=== PATIENT | male | born 1945 | race Caucasian/White ===

== ENCOUNTER 2023-05-14 21:06 | Inpatient (IN) | payer MEDICARE, OTHER ==
[2023-05-14] MEDS ORDERED: methylPREDNISolone NA SUCC 125 MG/2 ML VIAL IVPB ONE (21:39)
[2023-05-14] MEDS ORDERED: ALBUTEROL SO4 2.5/IPRATROPIUM 0.5 INH SOL 3 ML VIAL.NEB. NEB STA (21:42)
[2023-05-14] MEDS ORDERED: methylPREDNISolone NA SUCC 125 MG/2 ML VIAL ONE (21:47)
[2023-05-14] MEDS ORDERED: ALBUTEROL SO4 2.5/IPRATROPIUM 0.5 INH SOL 3 ML VIAL.NEB. NEB ONE ×3 (21:47→23:21)
[2023-05-14 22:19] LABS: BASO % 0.7 % (0-2.0); EOS % 6.9 % (0-4.5); HEMATOCRIT 47.4 % (35.4-49); HEMOGLOBIN 16.2 GM/dL (11.7-16.9); LYMPH % 16.6 % (8-40); MCH 30.3 pg (25.7-33.7); MCHC 34.2 g/dl (32.0-35.9); MEAN CELL VOLUME 88.8 fl (80-96); MEAN PLT VOLUME 7.8 fl (7.5-11.1); MONO % 5.3 % (3.8-10.2); NEUT % 70.5 % (42.8-82.8); PLATELET COUNT 326 10^3/uL (134-434); RBC 5.34 M/mm3 (4.00-5.60); WHITE BLOOD COUNT 9.9 K/mm3 (4.0-10.0)
[2023-05-14 22:38] LABS: POTASSIUM 4.6 mmol/L (3.5-5.1)
[2023-05-14 22:40] LABS: CALCIUM 9.5 mg/dL (8.5-10.1)
[2023-05-14 22:41] LABS: ALBUMIN 3.9 g/dl (3.4-5.0); BLOOD UREA NITROGEN 20.6 mg/dL (7-18)
[2023-05-14 22:44] LABS: CREATININE 1.5 mg/dL (0.55-1.3)
[2023-05-14 22:46] LABS: BILIRUBIN,TOTAL 0.8 mg/dL (0.2-1); TOT PROT 7.4 g/dl (6.4-8.2)
[2023-05-14 22:49] LABS: N-TERMINAL BNP 14.6 pg/ml (5-450)
[2023-05-15] MEDS ORDERED: AZITHROMYCIN IVPB 500 MG/250 ML BAG IVPB ONE ×2 (02:53→03:27)
[2023-05-15 05:36] LABS: PH,URINE 6.5 (5.0-8.0); URINE APPEARANCE CLEAR; URINE BILIRUBIN NEGATIVE (NEGATIVE); URINE COLOR YELLOW; URINE GLUCOSE (UA) 1+ (NEGATIVE); URINE KETONE TRACE (NEGATIVE); URINE LEUK ESTERASE NEGATIVE (NEGATIVE); URINE NITRITE NEGATIVE (NEGATIVE); URINE PROTEIN NEGATIVE (NEGATIVE); URINE UROBILINOGEN 0.2 mg/dL (0.2-1.0)
[2023-05-15 06:24] LABS: HEMATOCRIT 45.9 % (35.4-49); HEMOGLOBIN 15.5 GM/dL (11.7-16.9); MCH 30.5 pg (25.7-33.7); MCHC 33.8 g/dl (32.0-35.9); MEAN CELL VOLUME 90.2 fl (80-96); MEAN PLT VOLUME 8.2 fl (7.5-11.1); PLATELET COUNT 308 10^3/uL (134-434); RBC 5.09 M/mm3 (4.00-5.60); RDW 14.1 % (11.9-15.9); WHITE BLOOD COUNT 4.5 K/mm3 (4.0-10.0)
[2023-05-15 06:37] LABS: POTASSIUM 4.5 mmol/L (3.5-5.1)
[2023-05-15 06:39] LABS: CALCIUM 9.4 mg/dL (8.5-10.1)
[2023-05-15 06:40] LABS: ALBUMIN 3.8 g/dl (3.4-5.0)
[2023-05-15 06:43] LABS: CREATININE 1.2 mg/dL (0.55-1.3)
[2023-05-15 06:45] LABS: BILIRUBIN,TOTAL 0.6 mg/dL (0.2-1); TOT PROT 7.2 g/dl (6.4-8.2)
[2023-05-15] MEDS: ALBUTEROL SO4 2.5/IPRATROPIUM 0.5 INH SOL 3 ML VIAL.NEB. NEB SCH ×5 (07:45→21:27)
[2023-05-15] MEDS: HEPARIN NA (PORCINE) 5,000 UNITS/ML 1ML VIAL SQ SCH ×3 (09:04→21:24)
[2023-05-15] MEDS: PANTOPRAZOLE 20 MG TABLET PO SCH (09:54)
[2023-05-15] MEDS: methylPREDNISolone NA SUCC 40 MG/1 ML VIAL IVPUSH SCH ×2 (09:54→18:29)
[2023-05-15] MEDS ORDERED: LACTATED RINGERS SOLUTION 1,000 ML/1,000 ML INFUS.BAG IV SCH (10:30)
[2023-05-15 10:31] VITALS: BMI 26.9
[2023-05-15] MEDS: BUDESONIDE/FORMETEROL FUMARATE 80/4.5 mcg INHALER IH SCH ×2 (13:31→21:35)
[2023-05-15 19:27] VITALS: RESP 18
[2023-05-15] MEDS ORDERED: MELATONIN 5 MG TABLETS PO PRN (22:45)
[2023-05-16] MEDS: methylPREDNISolone NA SUCC 40 MG/1 ML VIAL IVPUSH SCH ×2 (01:06→09:34)
[2023-05-16] MEDS: HEPARIN NA (PORCINE) 5,000 UNITS/ML 1ML VIAL SQ SCH (05:35)
[2023-05-16 07:06] VITALS: BP 135/65; PULSE 80; TEMP 97.9
[2023-05-16] MEDS: ALBUTEROL SO4 2.5/IPRATROPIUM 0.5 INH SOL 3 ML VIAL.NEB. NEB SCH ×2 (07:58→11:36)
[2023-05-16] MEDS: PANTOPRAZOLE 20 MG TABLET PO SCH (09:34)
[2023-05-16] MEDS: BUDESONIDE/FORMETEROL FUMARATE 80/4.5 mcg INHALER IH SCH (09:35)
[2023-05-16] MEDS ORDERED: AZITHROMYCIN IVPB 250 MG in DEXTROSE 5%-WATER - 250 ML IVPB SCH (10:00)
[2023-05-16] MEDS ORDERED: MONTELUKAST NA 10 MG TABLET PO SCH (22:00)
== END 2023-05-16 13:26 | disposition home or self-care (01) | DRG 202 ==
LOC: JER 21:06 → JERBED 05-15 00:57 → J5S 05-15 08:31
PROVIDERS: ADMIT Internal Medicine
DX: J20.9 Acute bronchitis, unspecified (principal); N17.9 Acute kidney failure, unspecified; J47.9 Bronchiectasis, uncomplicated; Z85.46 Personal history of malignant neoplasm of prostate; K21.9 Gastro-esophageal reflux disease without esophagitis; D72.10 Eosinophilia, unspecified
CPT/HCPCS: 0241U-QW; 36415; 71250-TC; 76775-TC; 80053; 80061; 81003; 82550; 82553; 82570; 83036; 83880; 84156; 84443; 84484; 85025; 85027; 85379; 93005; 93010; 93306-TC; 93880-TC; 94640; 99285-25

== ENCOUNTER 2024-06-01 16:30 | Emergency (ER) | payer OTHER ==
[2024-06-01 16:45] VITALS: BP 155/91; PULSE 122; RESP 16; TEMP 97.6; BMI 25.8
== END 2024-06-01 20:09 | disposition home or self-care (01) ==
LOC: JER 16:30
DX: T18.5XXA Foreign body in anus and rectum, initial encounter (principal)
CPT/HCPCS: 72170-TC-FY; 93005; 93010; 99284-25